=== PATIENT | male | born 2000 | race Caucasian/White ===

== ENCOUNTER 2021-01-08 14:15 | Emergency (ER) | payer OTHER, SELFPAY ==
[2021-01-08 14:15] VITALS: BP 123/66; PULSE 93; RESP 17; O2SAT 99
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
--- NOTE | 2021-01-08 14:20 | PC.NURSE ---
Johnston placed by STACI Howell
[2021-01-08 14:27] VITALS: BMI 17.9
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
[2021-01-08 14:30] VITALS: BP 113/59; PULSE 79; RESP 25; O2SAT 100
--- NOTE | 2021-01-08 14:34 | PC.NURSE ---
[facility] states 22 min ETA at this time
--- NOTE | 2021-01-08 14:47 | PC.NURSE ---
DR Goldsmith speaking with [facility]
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
[2021-01-08 14:51] LABS: Basophils # 0.1 K/mm3 (0-0.2); Basophils % 0.4 % (0.1-2.0); Eosinophils # 0.1 K/mm3 (0.0-0.4); Eosinophils % 0.4 % (0.1-12.0); Hemoglobin 16.4 g/dL (14.1-18.0); Lymphocytes # 3.3 K/mm3 (0.7-4.5); Lymphocytes % 20.2 % (10-50); Mean Corpuscular HGB Conc 33.4 g/dL (31.8-35.4); Mean Corpuscular Hemoglobin 30.5 pg (27.0-31.2); Mean Corpuscular Volume 91.5 fl (80-94); Mean Platelet Volume 7.8 fl (7.4-10.4); Monocytes # 0.8 K/mm3 (0.1-1.0); Monocytes % 4.8 % (1.7-9.3); Neutrophils # 12.3 K/mm3 (1.8-7.8); Neutrophils % 74.2 % (37.0-80.0); Platelet Count 368 K/mm3 (142-424); Red Blood Count 5.36 M/mm3 (4.60-6.20); Red Cell Distribution Width 12.6 % (11.5-17.5); White Blood Count 16.5 K/mm3 (4.5-13.0)
[2021-01-08 14:53] LABS: MANUAL DIFFERENTIAL MANUAL DIFFERENTIAL (MANUAL DIFF)
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
[2021-01-08 14:56] LABS: Anion Gap 13.7 mEq/L (5-15); Blood Urea Nitrogen 11 mg/dl (9-20); Calcium 9.7 mg/dl (8.4-10.2); Carbon Dioxide 26 mmol/L (22.0-30.0); Chloride 104 mmol/L (98-107); Creatinine Clearance Estimated 133 mL/min (50-200); Estimated Glomerular Filt Rate 125 ml/min (>60); GFR (African American) 151 ML/MIN (>60); Glucose 106 mg/dl (74-100); Potassium 3.7 mmoL/L (3.5-5.1); Sodium 140 mmol/L (136-145)
[2021-01-08 15:00] VITALS: BP 111/64; PULSE 80; RESP 25; O2SAT 100
[2021-01-08 15:01] LABS: Barbiturates Screen,Urine Negative ng/ml (<200); Benzodiazepines Screen,Urine Negative ng/ml (<200)
[2021-01-08 15:02] LABS: Amphetamine/Metha Screen,Urine Negative ng/ml (<1000)
[2021-01-08 15:03] LABS: Cannabinoid Screen,Urine Positive ng/ml (<50); Cocaine Screen,Urine Negative ng/ml (<300)
[2021-01-08 15:04] LABS: Methadone Screen,Urine Negative ng/ml (<300)
[2021-01-08 15:05] LABS: Opiate Screen,Urine Negative ng/ml (<300); Phencyclidine Screen,Urine Negative ng/ml (<25)
[2021-01-08 15:08] VITALS: BP 111/64; PULSE 80; RESP 25; TEMP 37; O2SAT 100
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
[2021-01-08 15:09] LABS: Eosinophils % 1 % (0-3); Lymphocytes % 17 % (10-50); Monocytes % 3 % (2-9); Neutrophils % 74 % (42-76); Platelet Estimate Normal; RBC Morphology Normal; Total Cells Counted 100
[2021-01-08 15:12] LABS: INR 1.02 (0.9-1.1)
[2021-01-08 15:58] LABS: Ethyl Alcohol 99 mg/dl (0-10)
[2021-01-08 16:59] VITALS: BP 123/66; PULSE 93; RESP 17; O2SAT 99
[2021-02-17 12:40] LABS: POC Glucose,Bedside 99 (70-110)
== END 2021-01-08 15:09 | disposition short-term general hospital (02) ==
PROVIDERS: Emergency Provider Emergency Medicine
DX: S27.0XXA Traumatic pneumothorax, initial encounter (principal); V43.63XA Car passenger injured in collision with pick-up truck in traffic accident, initial encounter; Y92.413 State road as the place of occurrence of the external cause; F12.10 Cannabis abuse, uncomplicated
CPT/HCPCS: 71045; 72170; 80048; 80305; 82962; 85007; 85025; 85610; 96365; 96375; 99283; J2405

== ENCOUNTER 2023-11-09 22:13 | Emergency (ER) | payer SELFPAY ==
[2023-11-09 22:14] VITALS: BP 144/75; PULSE 110; RESP 20; TEMP 36.6; O2SAT 100
[2023-11-09 22:20] VITALS: BMI 22.6
[2023-11-09 22:21] VITALS: BMI 22.4
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
[2023-11-09] MEDS: LACTATED RINGERS 1000ML 1,000 ML 999 ML IV (22:34)
[2023-11-09 22:35] LABS: Chloride 110 mmol/L (98-107); Potassium 4.1 mmoL/L (3.5-5.1); Sodium 147 mmol/L (136-145)
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
[2023-11-09 22:37] LABS: Alanine Aminotransferase 44 U/L (12-78); Aspartate Amino Transferase 56 U/L (17-59); Blood Urea Nitrogen 11 mg/dl (9-20); Creatinine Clearance Estimated 130 mL/min (50-200); Estimated Glomerular Filt Rate 93 ml/min (>60); GFR (African American) 113 ML/MIN (>60)
[2023-11-09 22:38] LABS: Activated Partial Thrombo Time 26.3 seconds (22.8-30.6); Albumin Level 5.2 g/dl (3.5-5.0); Alkaline Phosphatase 80 U/L (38-126); Anion Gap 16.1 mEq/L (5-15); Bilirubin,Direct 0.3 mg/dl (0.0-0.4); Bilirubin,Total 0.3 mg/dl (0.2-1.3); Calcium 9.8 mg/dl (8.4-10.2); Carbon Dioxide 25 mmol/L (22.0-30.0); Glucose 105 mg/dl (74-100); Total Protein,Serum 8.8 g/dl (6.3-8.2)
[2023-11-09 22:49] LABS: Ethyl Alcohol 206 mg/dl (0-10)
--- NOTE | 2023-11-09 22:58 | PC.NURSE ---
Trauma Injury Assessment: Skin tear to dorsal right hand -Cervical spine tenderness on palpation Skin tear to bridge of nose Proximal left arm laceration, +pain, +CMS Scattered bruising/abrasions to torso and abdomen +CMS BLE Scattered bruising and abrasions to buttocks and low back
--- NOTE | 2023-11-09 23:01 | PC.NURSE ---
patient in CT.
[2023-11-09 23:03] LABS: Basophils # 0.2 K/mm3 (0-0.2); Basophils % 0.8 % (0.1-2.0); Eosinophils # 0.1 K/mm3 (0.0-0.4); Eosinophils % 0.6 % (0.1-12.0); Hematocrit 57.1 % (42.0-52.0); Lymphocytes # 2.8 K/mm3 (0.7-4.5); Mean Corpuscular HGB Conc 32.6 g/dL (31.8-35.4); Mean Corpuscular Hemoglobin 32.4 pg (27.0-31.2); Mean Corpuscular Volume 99.6 fl (80-94); Mean Platelet Volume 8.1 fl (7.4-10.4); Monocytes # 0.8 K/mm3 (0.1-1.0); Monocytes % 4.3 % (1.7-9.3); Neutrophils # 14.9 K/mm3 (1.8-7.8); Neutrophils % 79.3 % (37.0-80.0); Platelet Count 329 K/mm3 (142-424); Red Blood Count 5.73 M/mm3 (4.60-6.20); Red Cell Distribution Width 12.4 % (11.5-17.5); White Blood Count 18.8 K/mm3 (4.8-10.8)
[2023-11-09 23:07] LABS: MANUAL DIFFERENTIAL MANUAL DIFFERENTIAL (MANUAL DIFF)
--- NOTE | 2023-11-09 23:14 | PC.NURSE ---
patient back in room at this time.
[2023-11-09] MEDS: IOPAMIDOL-370 (76%);100ML BOTTLE 180 ML IV (23:18)
[2023-11-09] MEDS: SODIUM CHLORIDE 0.9% 10ML SYR (RAD ONLY) 10 ML IV (23:18)
[2023-11-09 23:29] LABS: Eosinophils % 1 % (0-3); Lymphocytes % 18 % (10-50); Monocytes % 4 % (2-9); Neutrophils % 77 % (42-76); Platelet Estimate Normal; RBC Morphology Normal; Total Cells Counted 100
[2023-11-09 23:31] LABS: Hemoglobin 18.6 g/dL (14.1-18.0)
[2023-11-10 00:22] VITALS: BP 130/81; PULSE 89; RESP 20; TEMP 37.1; O2SAT 99
== END 2023-11-10 00:21 | disposition home or self-care (01) ==
PROVIDERS: Emergency Provider Emergency Medicine
DX: S02.2XXA Fracture of nasal bones, initial encounter for closed fracture (principal); S01.21XA Laceration without foreign body of nose, initial encounter; S60.511A Abrasion of right hand, initial encounter; F17.210 Nicotine dependence, cigarettes, uncomplicated; V86.55XA Driver of 3- or 4- wheeled all-terrain vehicle (ATV) injured in nontraffic accident, initial encounter; Z23 Encounter for immunization
CPT/HCPCS: 12001; 70450; 70486; 70496; 70498; 71045; 71275; 72125; 72128; 72131; 72170; 72192; 73030; 73060; 73080; 74174; 80048; 80076; 85007; 85025; 85730; 90471; 96361; 96374; 96375; 99285; Q9967